=== PATIENT | male | born 1980 | race African-American/Black ===

== ENCOUNTER 2022-04-14 22:35 | Emergency (ER) | payer MEDICAID ==
[~2022-04-14] VITALS: Ht 172.7 cm; Wt 68.0 kg
[2022-04-14 22:52] VITALS: BP 135/87
[2022-04-14] MEDS ORDERED: IBUP-2029 MT (23:55)
[2022-04-14] MEDS ORDERED: METH-653 MT (23:55)
== END 2022-04-15 00:54 | disposition home or self-care (01) ==
LOC: ER 22:35
DX: S39.012A Strain of muscle, fascia and tendon of lower back, initial encounter (principal); S33.5XXA Sprain of ligaments of lumbar spine, initial encounter; Z87.828 Personal history of other (healed) physical injury and trauma; X50.0XXA Overexertion from strenuous movement or load, initial encounter; Y93.89 Activity, other specified; Y92.89 Other specified places as the place of occurrence of the external cause; Y99.8 Other external cause status
CPT/HCPCS: 99283